=== PATIENT | male | born 1970 | race Caucasian/White ===

== ENCOUNTER 2021-07-12 21:51 | Inpatient (IN) | payer OTHER ==
[~2021-07-12] VITALS: Ht 170.2 cm; Wt 105.9 kg
[2021-07-12 21:56] VITALS: BP 136/107
[2021-07-12 22:17] LABS: BE(vivo) -11.9 mmol/L (-2 to +3); HCO3 13.2 mmol/L (22.0-26.0); PCO2 29.9 mmHg (35.0-45.0); PO2 78.6 mmHg (80.0-100.0); sO2 94.1 % (92.0-98.0)
[2021-07-12 22:18] LABS: pH 7.263 (7.360-7.450)
[2021-07-12 22:24] LABS: URINE BILIRUBIN NEGATIVE (Negative); URINE BLOOD 1+ (Negative); URINE CLARITY CLEAR; URINE COLOR YELLOW; URINE GLUCOSE-RANDOM* 3+ (Negative); URINE KETONES 1+ (Negative); URINE LEUKOCYTES-REFLEX NEGATIVE (Negative); URINE NITRITE-REFLEX NEGATIVE (Negative); URINE PROTEIN (DIPSTICK) NEGATIVE (Negative); URINE UROBILINOGEN 0.2 E.U./dl (0.2-1.0)
[2021-07-12 22:39] LABS: BACTERIA-REFLEX 1-9 Few /HPF (None Seen); CASTS None Seen /LPF (None Seen); CRYSTALS None Seen /LPF (None Seen); MUCUS 0-3 Light strn/LPF (None Seen); SQUAMOUS 0-3 Few /LPF (0-3); URINE RBC 3-10 Few /HPF (NONE SEEN); URINE WBC-REFLEX 0-5 Rare /HPF (0-5)
[2021-07-12 22:43] LABS: AMP/METHAMP POSITIVE (Negative); BARBITURATES Negative (Negative); BENZODIAZEPINES Negative (Negative); COCAINE Negative (Negative); METHADONE Negative (Negative); OPIATES Negative (Negative); PCP Negative (Negative)
[2021-07-13] VITALS (21 sets, daily range): BP systolic 50–170; BP diastolic 30–112
[2021-07-13 00:11] LABS: ABSOLUTE NEUTROPHILS 15.1 thou/uL (1.4-8.2); BASOPHILS 0.3 % (0.0-2.0); HEMOGLOBIN 18.4 gm/dL (14.0-18.0); LYMPHOCYTES 7.3 % (24.0-44.0); MCH 31.2 pg (26.0-34.0); MCHC 30.1 g/dL (28.0-37.0); MCV 103.7 fL (80.0-100.0); MONOCYTES 7.3 % (1.0-8.0); PLATELET COUNT 297 thou/uL (150-400); POLYS 85.1 % (36.0-66.0); RDW 14.5 % (10.5-14.5); WBC 17.7 thou/uL (4.0-11.0)
[2021-07-13 00:16] LABS: HEMATOCRIT 61.2 % (42.0-52.0)
[2021-07-13 00:26] LABS: CALCIUM 10.9 mg/dL (8.5-10.1); CREATININE 3.3 mg/dL (0.7-1.3); POTASSIUM 5.4 mmol/L (3.5-5.1)
[2021-07-13 02:46] LABS: ALBUMIN 3.2 g/dL (3.4-5.0); CALCIUM 10.5 mg/dL (8.5-10.1); CREATININE 2.9 mg/dL (0.7-1.3); PHOSPHORUS 2.9 mg/dL (2.6-4.7)
[2021-07-13 02:59] LABS: POTASSIUM 3.9 mmol/L (3.5-5.1)
[2021-07-13 06:37] LABS: CALCIUM 9.9 mg/dL (8.5-10.1); CREATININE 2.3 mg/dL (0.7-1.3); POTASSIUM 3.4 mmol/L (3.5-5.1)
[2021-07-13 08:46] LABS: CALCIUM 9.9 mg/dL (8.5-10.1); CREATININE 2.3 mg/dL (0.7-1.3); PHOSPHORUS 2.6 mg/dL (2.6-4.7); POTASSIUM 3.6 mmol/L (3.5-5.1)
[2021-07-13 09:40] LABS: HEMATOCRIT 53.1 % (42.0-52.0); HEMOGLOBIN 18.1 gm/dL (14.0-18.0); MCHC 34.1 g/dL (28.0-37.0); MCV 91.1 fL (80.0-100.0); PLATELET COUNT 258 thou/uL (150-400); RBC 5.82 mil/uL (4.50-6.00); RDW 12.9 % (10.5-14.5); WBC 19.6 thou/uL (4.0-11.0)
--- NOTE | 2021-07-13 10:04 | NUR ---
VAT CONSULTED FOR CVAD, TIMEOUT WITH SEYMOUR FISHER. RIJ WAS WIDELY PATENT WITH USG. 6FR 25CM TL JACC INSERTED TO 8CM EXTERNAL WITH BRISK BR. LINE SECURED STAT CXR DONE. PT TOLERATED WELL
--- NOTE | 2021-07-13 10:25 | NUR ---
SPOKE WITH ALEXSANDER, VERBAL ORDER FOR HEAD CT DUE TO STATUS OF PT, AND ABG DUE TO KUSSMAUL BREATHING AND INCREASE RESTLESSNESS, ALEXSANDER WILL COME TO THE ER ROOM 1 TO EVAULATE PT.
[2021-07-13 10:37] LABS: BE(vivo) 1.3 mmol/L (-2 to +3); HCO3 26.3 mmol/L (22.0-26.0); PCO2 42.9 mmHg (35.0-45.0); PO2 65.8 mmHg (80.0-100.0); pH 7.406 (7.360-7.450); sO2 93.1 % (92.0-98.0)
[2021-07-13 11:13] LABS: ABSOLUTE NEUTROPHILS 16.1 thou/uL (1.4-8.2)
--- NOTE | 2021-07-13 11:58 | NUR ---
CXR CONFIRMED CL PLACEMENT, RELEASED FOR IMMEDIATE USE PER PROTOCOL TO SEYMOUR FISHER
[2021-07-13 12:25] LABS: CALCIUM 9.3 mg/dL (8.5-10.1); CREATININE 2.4 mg/dL (0.7-1.3); MAGNESIUM 3.3 mg/dL (1.8-2.4); PHOSPHORUS 3.1 mg/dL (2.5-4.9)
--- NOTE | 2021-07-13 13:25 | NUR ---
LEMUEL NATHAN (MOM) [phone] BRIEN RUVALCABA (GIRLFRIEND) [phone]
[2021-07-13 18:49] LABS: CALCIUM 9.9 mg/dL (8.5-10.1); CREATININE 2.8 mg/dL (0.7-1.3); PHOSPHORUS 3.2 mg/dL (2.6-4.7); POTASSIUM 3.5 mmol/L (3.5-5.1)
[2021-07-13 21:29] LABS: BE(vivo) -0.4 mmol/L (-2 to +3); HCO3 21.1 mmol/L (22.0-26.0); PCO2 28.4 mmHg (35.0-45.0); PO2 104.9 mmHg (80.0-100.0); pH 7.489 (7.360-7.450); sO2 98.2 % (92.0-98.0)
[2021-07-13 23:14] LABS: ALBUMIN 2.5 g/dL (3.4-5.0); CALCIUM 8.2 mg/dL (8.5-10.1); CREATININE 3.6 mg/dL (0.7-1.3); MAGNESIUM 2.5 mg/dL (1.8-2.4); PHOSPHORUS 3.4 mg/dL (2.5-4.9)
[2021-07-14] VITALS (82 sets, daily range): BP systolic 73–178; BP diastolic 27–100
--- NOTE | 2021-07-14 01:29 | NUR ---
I ENTERED PT'S ROOM AT 1930 TO FIND PATIENT IN A CHEYNNE-MORNEO RESPIRATORY PATTERN. PT HAD A LARGE AMOUNT OF ORAL SECRETIONS. uNABLE TO OBTAIN AN ACCURATE PO READING. PT SUCTIONNED ORALLY FOR A MADERATE AMOUNT OF THICK WHITE SECRETIONS. COARSE RESPIRATIONS PERSISTED, AUTOMATION QTP TESTER SUCTIONED FOR A COPIOUS AMOUNT OF THICK WHITE/KHAN SECRETIONS. PT'S WORK OF BREATHING CONTINUES TO INCREASE. pLACED ON BIPAP. PT'S B/P 70/30. Dulce HOLMAN AUTOMATION QTP TESTER AT BEDSIDE. IVF ADMINISTERED. PO READING OBTAINED ON EARLOBE-99%. ABG OBTAINED. 1 AMP BICARB ADMINISTERED. LEVOPHED NOT STARTED AT THAT TIME B/P NORMALIZED. DR JON UPDATED ON PT'S CONDITION. RESULTS OF PT'S BMP SHOWING PT'S NA-[address] DIEHL, NO NOTED. MOTHER, LEMUEL, UPDATED ON PT'S DECLINE. PT'S B/P BEGAN TO DROP. LEVOPHED STARTED AT 0.1 MCG/KG 2325, INCREASED TO 0.2 AT 2333. 0.3 AT 2345, 0.4 AT 0000. pT'S B/P IS WNL ON LEVOPHED AT PRESENT. PT'S FSBS HAD DECREASED TO 80, INSULIN GTT STOPPED BUT THEN RETARTED AT 2330 FOR A FSBS- 187. SEE INSULIN INFUSION FLOWSHEET.
--- NOTE | 2021-07-14 06:40 | NUR ---
Dulce HOLMAN AWARE OF THE INSULIN PROTOCOL STATING THAT BECAUSE PT'S FSBS-268 AND HE IS CURRENTLY RUNNING AT 20 ML/HR, THE RATE SHOULD INCREASE BY 50% TO 30 ML/HR. RATE INCREASED AT 0625
[2021-07-14 09:29] LABS: CALCIUM 8.4 mg/dL (8.5-10.1); POTASSIUM 3.4 mmol/L (3.5-5.1)
[2021-07-14 09:33] LABS: ALBUMIN 2.2 g/dL (3.4-5.0); PHOSPHORUS 2.6 mg/dL (2.6-4.7)
[2021-07-14 09:36] LABS: CREATININE 4.9 mg/dL (0.7-1.3)
[2021-07-14 16:40] LABS: CALCIUM 7.9 mg/dL (8.5-10.1); PHOSPHORUS 3.7 mg/dL (2.6-4.7); POTASSIUM 3.9 mmol/L (3.5-5.1)
[2021-07-14 17:43] LABS: ALBUMIN 2.2 g/dL (3.4-5.0); DIRECT BILIRUBIN 0.1 mg/dL (<0.1-0.2); TOTAL BILIRUBIN 0.3 mg/dL (0.2-1.0); TOTAL PROTEIN 4.8 g/dL (6.4-8.2)
--- NOTE | 2021-07-14 20:01 | NUR ---
PT HAS LARGELY REMAINED LETHARGIC THIS SHIFT, ONCE PT WAS ADJUSTED IN BED AND LEGS STRAIGHTENED OUT PT DID NOT MAKE AN EFFORT TO READJUST SELF, PT WAS SEEN WRIGGLING TOES AT THE MOST AND ALSO GRUNTED AND GRIMACED TO STERNAL RUB ONLY. PT'S BLOOD PRESSURE WAS CONCERNING, AT TIMES PT'S BLOOD PRESSURE WOULD SUDDENLY SHOOT UP WHILE BEING ON PRESSOR SUPPORT AND SUDDENLY COME BACK DOWN WITHOUT ANY INTERVENTION, MD NOTIFIED OF FINDINGS. PT'S URINE OUTPUT WAS DISSMAL, NEPHROLOGY AWARE, MAINTENANCE RATE CUT IN HALF. PT'S BIPAP WAS WEANED THROUGHOUT THE SHIFT, FROM 100 TO 70%, PT TOLERATING WELL. ORAL ROUTE OF ADMINISTRATION WAS NOT AVAILABLE FOR THE PT TODAY GIVEN SEVERITY OF LETHARGY AND INABILITY TO FOLLOW COMMANDS, MADE AWARE. CONTINUING TO MONITOR, RN SIGNING OFF
[2021-07-15] VITALS (84 sets, daily range): BP systolic 74–204; BP diastolic 33–115
--- NOTE | 2021-07-15 05:04 | HC ---
[facility] [place] [address] CONSULTATION Name: LOGAN CALABRESE Room #: 242-P ADM IN M.R.#: [id number] Admission: 07/13/21 Attend Phys: Ivana Maza Discharge: Date of : 70 Report #: [id number] THIS REPORT FOR: cc: NO FAMILY PHYSICIAN or PCP NO FAMILY PHYSICIAN or PCP Fredrick Hendricks MD ~ DATE OF SERVICE: 07/14/2021 INFECTIOUS DISEASE CONSULTATION ATTENDING PHYSICIAN: Dr. Maza. REASON FOR EVALUATION: Febrile illness in the setting of DKA and respiratory failure. HISTORY OF PRESENT ILLNESS: Chart reviewed. The patient examined. This is a 51-year-old gentleman with diabetes mellitus, poorly controlled, who presented to the Emergency Room from home with progressive encephalopathy, increased thirst. He was found to have markedly elevated blood sugars. It is notable that he denies any history of diabetes. Initial blood gases showed pH 7.263 on room air. Urinalysis was remarkable for 3+ glucose, protein was negative and microscopic was unrevealing. Coronavirus testing was negative. Drug screen was positive for methamphetamines. Chest x-ray showed no acute process. Lactic acid was elevated at 3.1 with elevated creatinine of 3.3. Initial blood sugar shows sodium 136 with a glucose of 1460. He was initiated on therapy for DKA. He is noted to have fevers most notably earlier this morning at 101.7. He has been somewhat hemodynamically labile as well. He has required low dose pressor support with norepinephrine. Blood cultures have been collected and are sterile thus far. He was empirically started on therapy with cefepime 2 grams IV q. 24. ALLERGIES: LISTED TO PENICILLIN. CURRENT MEDICATIONS: Include thiamine, norepinephrine, famotidine, enoxaparin, flumazenil, cefepime. PAST MEDICAL HISTORY: Apparently has diabetes mellitus, perhaps initial diagnosis. SOCIAL HISTORY: Polysubstance abuse. Smokes cigarettes, utilizes some illicit drugs including marijuana, cocaine and methamphetamine. Occasional ethanol. FAMILY HISTORY: Noncontributory. REVIEW OF SYSTEMS: Unobtainable. PHYSICAL EXAMINATION: [facility] [address] [place] [address] CONSULTATION Name: BHARATILOGAN Room #: 242-[facility] IN M.R.#: [id number] Admission: 07/13/21 Attend Phys: Ivana Maza Discharge: Date of : 70 Report #: [id number] GENERAL: He is chronically ill appearing. He is minimally responsive at this point. VITAL SIGNS: Temperature 99.7, earlier today 101.7, pulse 98, respirations 31, blood pressure 113/68. SKIN: Warm, dry, no rashes. HEENT: Has a BiPAP in place. NECK: Appears to be supple. LUNGS: Bilateral few scattered coarse breath sounds. HEART: Borderline tachycardic, regular. I do not appreciate a murmur. ABDOMEN: Mildly distended, somewhat firm. There is no overt peritoneal signs. Perhaps some grimacing. GENITOURINARY AND RECTAL: Deferred. LABORATORY DATA: CPK total of 4657. Most recent electrolytes, sodium 163, potassium 4.0, chloride 123, bicarbonate is 28, anion gap of 12, BUN and creatinine 66 and 2.4, glucose was 582, albumin 30. CBC: White count 19.6, H and H 18.1 and 53.1, MCV of 103.7, platelet count of 258. Did have 5% bands. ABGs: pH 7.406, pCO2 of 42.9, pO2 of 65.8 on 3 liters. Followup chest x-ray development of mild right basilar atelectasis or infiltrates, otherwise clear. Lactic acid initially elevated at 3.1, repeat was 1.4, albumin of 2.2. ASSESSMENT AND PLAN: Febrile illness in a setting of what appears to be diabetic ketoacidosis complicated by renal failure, likely component of rhabdomyolysis as well, not entirely clear as to the etiology. Certainly infection would be a likely concern. We will do additional diagnostic testing. I think it is reasonable to continue empiric gram-negative coverage. We will add a dose of vancomycin as well pending the results of the culture. He will need continued fluid resuscitation, ongoing efforts to treat the diabetic ketoacidosis, but is quite critically ill at this point. Continue to monitor expectantly. <ELECTRONICALLY SIGNED> By: Fredrick Hendricks MD 07/15/21 0504 [id number] [id number] Fredrick Hendricks MD /nt
[2021-07-15 05:29] LABS: HEMATOCRIT 45.7 % (42.0-52.0); MCH 31.1 pg (26.0-34.0); MCHC 33.5 g/dL (28.0-37.0); MCV 92.8 fL (80.0-100.0); RBC 4.93 mil/uL (4.50-6.00); RDW 13.3 % (10.5-14.5); WBC 15.8 thou/uL (4.0-11.0)
[2021-07-15 05:44] LABS: HEMOGLOBIN 15.3 gm/dL (14.0-18.0)
--- NOTE | 2021-07-15 05:56 | NUR ---
PT ON INSULIN GTT AND HAD A BLOOD SUGAR OF 55. PROTOCOL FOLLOWED. ORDERS GIVEN BY OIL PLANT OPERATOR. INSULIN GTT RESTARTED. DR GONZALEZ AT BEDSIDE THIS AM. AWARE OF FEVERS OVERNIGHT. WILL CONTINUE POC
--- NOTE | 2021-07-15 08:28 | NUR ---
UNABLE TO GET MORNING TEMP ON THE PT RELATED TO AXILLARY ROUTE NOT AVAILABE; ICE PACKS WERE UNDERNEATH, ORAL ROUTE NOT AVAILABLE; PT IS ON BIPAP
[2021-07-15 08:49] LABS: CALCIUM 7.6 mg/dL (8.5-10.1); CREATININE 4.2 mg/dL (0.7-1.3); POTASSIUM 3.5 mmol/L (3.5-5.1)
[2021-07-15 08:53] LABS: ALBUMIN 1.6 g/dL (3.4-5.0)
[2021-07-15 10:26] LABS: ABSOLUTE NEUTROPHILS 13.1 thou/uL (1.4-8.2); METAMYELOCYTES 2 %
[2021-07-15 10:27] LABS: ANISOCYTOSIS SLIGHT
[2021-07-15 13:14] LABS: LARGE PLATELETS RARE; PLATELET COUNT 70 thou/uL (150-400)
[2021-07-16] VITALS (79 sets, daily range): BP systolic 76–151; BP diastolic 40–100
[2021-07-16 04:35] LABS: HEMATOCRIT 43.8 % (42.0-52.0); HEMOGLOBIN 14.7 gm/dL (14.0-18.0); MCH 31.1 pg (26.0-34.0); MCHC 33.7 g/dL (28.0-37.0); MCV 92.5 fL (80.0-100.0); RBC 4.74 mil/uL (4.50-6.00); RDW 13.4 % (10.5-14.5); WBC 10.5 thou/uL (4.0-11.0)
[2021-07-16 04:43] LABS: ALBUMIN 1.4 g/dL (3.4-5.0); CALCIUM 6.8 mg/dL (8.5-10.1); PHOSPHORUS 4.3 mg/dL (2.5-4.9); POTASSIUM 3.5 mmol/L (3.5-5.1)
[2021-07-16 04:47] LABS: CREATININE 3.1 mg/dL (0.7-1.3)
[2021-07-16 07:06] LABS: HAV IgM AB (ANTI-HAV IgM) Negative (Negative); HEPATITIS B SURFACE AG Negative (Negative); HIV ANTIBODY Non Reactive (Non Reactive)
--- NOTE | 2021-07-16 10:28 | 2DMMODE ---
[facility] [address] [place] [address] 2 D/M-MODE ECHOCARDIOGRAM Name: LOGAN CALABRESE Room #: 242-P ADM IN M.R.#: [id number] Admission: 07/13/21 Attend Phys: Ivana Maza Discharge: Date of : 70 Report #: [id number] THIS REPORT FOR: cc: NO FAMILY PHYSICIAN or PCP NO FAMILY PHYSICIAN or PCP Darshan Leal MD ~ APPROVED REPORT Study performed: 07/16/2021 09:42:40 EXAM: Comprehensive 2D, Doppler, and color-flow Echocardiogram Patient Location: In-Patient Room #: 242 Status: routine BSA: 2.00 HR: 86 bpm BP: 99/66 mmHg Rhythm: NSR Other Information Study Quality: Fair Technically limited study due to body habitus, lung interference. Pt on bipap, RR 32.. Indications N/V Substance abuse 2D Dimensions IVSd: 9.94 (7-11mm) LVOT Diam: 23.84 (18-24mm) LVDd: 45.03 mm PWd: 9.66 (7-11mm) Ascending Ao: 36.66 (22-36mm) LVDs: 31.38 (25-40mm) Left Atrium: 29.46 (27-40mm) Aortic Root: 37.90 mm Volumes Left Atrial Volume (Systole) Single Plane 4CH: 17.69 mL Single Plane 2CH: 26.31 mL Biplane LA Volume: 35.00 mL LA ESV Index: 12.00 mL/m2 Aortic Valve AoV Peak Mandeep.: 0.96 m/s AO Peak Gr.: 3.66 mmHg LVOT Max P.70 mmHg [facility] [address] [place] [address] 2 D/M-MODE ECHOCARDIOGRAM Name: LOGAN CALABRESE Room #: 242-P [facility] IN .R.#: [id number] Admission: 07/13/21 Attend Phys: Ivana Muniz Discharge: Date of : 70 Report #: [id number] LVOT Max V: 0.82 m/s LEENA Vmax: 3.84 cm2 Mitral Valve E/A Ratio: 0.7 MV Decel. Time: 280.77 ms MV E Max Mandeep.: 0.19 m/s MV A Mandeep.: 0.26 m/s MV PHT: 81.42 ms Tricuspid Valve TR Peak Mandeep.: 1.59 m/s RAP Estimate: 7.00 mmHg TR Peak Gr.: 10.17 mmHg RVSP: 17.00 mmHg Left Ventricle The left ventricle is normal size. There is normal LV segmental wall motion. There is normal left ventricular wall thickness. Left ventricular systolic function is mildly decreased. LVEF is 45-50%. Transmitral Doppler flow pattern suggests impaired LV relaxation. Right Ventricle The right ventricle is normal size. The right ventricular systolic function is normal. Atria The left atrium size is normal. The right atrium size is normal. Aortic Valve The aortic valve is not well visualized. No aortic regurgitation is present. There is no aortic valvular stenosis. Mitral Valve The mitral valve is normal in structure. There is no mitral valve regurgitation noted. No evidence of mitral valve stenosis. Tricuspid Valve The tricuspid valve is normal in structure. Trace tricuspid regurgitation PAP 17 mmHg Pulmonic Valve The pulmonary valve is normal in structure. There is no pulmonic valvular regurgitation. Great Vessels [facility] [address] [place] [address] 2 D/M-MODE ECHOCARDIOGRAM Name: BHARATILOGAN LADAN Room #: 242-P ADM IN M.R.#: [id number] Admission: 07/13/21 Attend Phys: Ivana Muniz Discharge: Date of : 70 Report #: [id number] The aortic root is normal in size. IVC is normal in size and collapses >50% with inspiration. Pericardium There is no pericardial effusion. There is no pleural effusion. <Conclusion> The left ventricle is normal size. There is normal left ventricular wall thickness. There is normal left ventricular wall thickness. LVEF is 45-50%. The right ventricle is normal size. The left atrium size is normal. The aortic valve is not well visualized. The mitral valve is normal in structure. The tricuspid valve is normal in structure. Trace tricuspid regurgitation PAP 17 mmHg The pulmonary valve is normal in structure. The aortic root is normal in size. There is no pericardial effusion. <ELECTRONICALLY SIGNED> By: Darshan Leal MD 07/16/21 1028 1028 1028 Darshan Leal MD /INF
[2021-07-16 10:29] LABS: HEPATITIS C VIRUS AB <0.1
--- NOTE | 2021-07-16 11:45 | NUR ---
PT AOX2-3, PT ABLE TO FOLLOW COMMANDS, MOUTH CARE DONE. PT OFF BIPAP AND PLACE ON 8LNC AND TOLERATING IT WELL. NOTED MODELING ON NOSE, B/L KNEES, AND LOWER EXTREMIIIES. LOWER EXTREMITIES COOL TO TOUCH AND PULSE BY DOPPLER. PLAN IS TO STOP LEVO AND TRY NEOSYNPHRINE.
--- NOTE | 2021-07-16 12:02 | NUR ---
WOUND CONSULT: THE RN TODAY ASSKED ME TO SEE THIS PATIENT WHOM IS CURRENTLY ON PRESSORS. HIS TOES/FINGERS AND NOSE HAS MOTTLING AND DUSKY FINGERS AND TOES WELL THE PTIENTS NOSE. THE NOSE IS THE WORSE ARE AT THIS TIME. RECOMMENDATIONS: -PAINT WITH BETADINE DAILY.
--- NOTE | 2021-07-16 16:23 | NUR ---
Discussed during los with the attending physician and during unit rounds. Patient was on bipap 30% FIO2, and currently on nasal cannula oxygen. Speech eval for diet. Patient, 51-year-old male came to the ED from home. Complaints of mental status changes and increased thirst for a few days. Patient blood sugar was noted to be 600 in the field. Patient lives with his mom and significant other. Denies history of DM. he smokes 1 pack/day of cigarette and drinks occasionally. Also reports use of methamphetamine yesterday. Denies IV drug use. Per ED RN, the family reports the patient also uses cocaine and marijuana. positive for methamphetamine per ED notes. Cm spoke with his mom Valerie [phone] and sig anya Santos via phone call, they confirmed that he was independent, never been to the doctor before. not had his covid vaccine and not ever had a flu vaccine before. He was working for a [employer] that just went under. No insurance. Not on any prescription medication, no rehab of any sort in the past. uses drugs and drink occasionally. We would like to know what and were the blood was coming from in his under [place] per mom Avani and sig anya Santos. Will cont. following as needed. Passed on information to the bedside nurse and the attending physician to address with patient and his mom.
[2021-07-17] VITALS (125 sets, daily range): BP systolic 84–137; BP diastolic 43–88
[2021-07-17 04:56] LABS: HEMATOCRIT 39.4 % (42.0-52.0); HEMOGLOBIN 13.1 gm/dL (14.0-18.0); MCH 30.8 pg (26.0-34.0); MCHC 33.4 g/dL (28.0-37.0); MCV 92.4 fL (80.0-100.0); RBC 4.26 mil/uL (4.50-6.00); RDW 13.7 % (10.5-14.5); WBC 7.6 thou/uL (4.0-11.0)
[2021-07-17 05:04] LABS: ALBUMIN 1.2 g/dL (3.4-5.0); CALCIUM 7.1 mg/dL (8.5-10.1); CREATININE 2.4 mg/dL (0.7-1.3); PHOSPHORUS 3.6 mg/dL (2.5-4.9); POTASSIUM 3.5 mmol/L (3.5-5.1)
--- NOTE | 2021-07-17 07:31 | NUR ---
Spoke with pts mom Avani and she stated it was okay for Manuel Joseph (pt's friend) to recieve information on pts condition.
[2021-07-18] VITALS (107 sets, daily range): BP systolic 78–127; BP diastolic 27–88
[2021-07-18 06:40] LABS: ALBUMIN 1.2 g/dL (3.4-5.0); CALCIUM 7.3 mg/dL (8.5-10.1); CREATININE 1.9 mg/dL (0.7-1.3); MAGNESIUM 2.3 mg/dL (1.8-2.4); PHOSPHORUS 2.8 mg/dL (2.5-4.9)
[2021-07-18 06:44] LABS: POTASSIUM 2.7 mmol/L (3.5-5.1)
--- NOTE | 2021-07-18 10:05 | NUR ---
ASSUMED CARE OF PT AT 0700. PT ALERT AND ORIENTED TIMES THREE WITH PERIODS OF CONFUSION. VSS, LOPEZ TO DD. PRECEDEX AND IVF INFUSING PER ORDER. PT TOLERATES MEDS. PT PASSED SWALLOW STUDY THIS MORNING, BUT ONLY EAT A VERY SMALL PORTION OF BREAKFAST. PT DENIES PAIN AT THIS TIME. WILL CONTINUE TO MONITOR.
--- NOTE | 2021-07-18 16:48 | NUR ---
Pt's mother called today requesting assistance with helping pt apply for [place] medicaid. Gilberto Cardona liason is working on that and will call her. Pt still not able to discuss application or sign today.
[2021-07-18 21:17] LABS: CREATININE 1.6 mg/dL (0.7-1.3); MAGNESIUM 2.2 mg/dL (1.8-2.4); POTASSIUM 3.3 mmol/L (3.5-5.1)
[2021-07-19] VITALS (61 sets, daily range): BP systolic 74–129; BP diastolic 43–87
[2021-07-19 05:25] LABS: HEMATOCRIT 37.8 % (42.0-52.0); HEMOGLOBIN 12.3 gm/dL (14.0-18.0); MCH 30.5 pg (26.0-34.0); MCHC 32.6 g/dL (28.0-37.0); MCV 93.7 fL (80.0-100.0); RBC 4.03 mil/uL (4.50-6.00); RDW 13.7 % (10.5-14.5); WBC 16.7 thou/uL (4.0-11.0)
[2021-07-19 05:44] LABS: ALBUMIN 1.1 g/dL (3.4-5.0); CALCIUM 7.2 mg/dL (8.5-10.1); CREATININE 1.6 mg/dL (0.7-1.3); POTASSIUM 3.2 mmol/L (3.5-5.1)
--- NOTE | 2021-07-19 07:52 | NUR ---
ASSUME CARE 1900. PTVITALS STABLE. A/O TO PERSON AND PLACE. EPISODES OF CONFUSION NOTED WITH EASY REDIRECTION. MOVES ALL EXTREMITIES BUT WEAK/COULD BENEFIT FROM PT/OT ONCE STABLE. DENIES ANY PAIN. POOR TOLERANCE TO ACTIVITY. ASSESSMENT CHARTED. PROGRESSING MODERATLY TOWARDS POC. SR ON MONITOR. PT ON PRECEDEX TO HELP WITH AGITATION. ALSO ON NEOSYN FOR BP AND INSULIN DRIP. PLAN IS TO CONTINUE TO MONITOR AND MANAGE LOC/ELECTROYTES/BG. WILL CONTINUE TO MONITOR AND FOLLOW WITH POC
[2021-07-19 22:56] LABS: MAGNESIUM 1.8 mg/dL (1.8-2.4); POTASSIUM 3.1 mmol/L (3.5-5.1)
[2021-07-20] VITALS (70 sets, daily range): BP systolic 70–124; BP diastolic 45–89
[2021-07-20 05:24] LABS: HEMATOCRIT 36.2 % (42.0-52.0); MCH 31.1 pg (26.0-34.0); MCHC 33.1 g/dL (28.0-37.0); MCV 93.8 fL (80.0-100.0); RBC 3.86 mil/uL (4.50-6.00); RDW 13.9 % (10.5-14.5); WBC 18.6 thou/uL (4.0-11.0)
[2021-07-20 06:01] LABS: CALCIUM 7.3 mg/dL (8.5-10.1); CREATININE 1.8 mg/dL (0.7-1.3); POTASSIUM 3.4 mmol/L (3.5-5.1)
--- NOTE | 2021-07-20 07:33 | EKG ---
[address] [place] [address] ELECTROCARDIOGRAM REPORT Name: ROBE CALABRESECHARAN PICKERING Room #: 242-P ADM IN M.R.#: [id number] Admission: 07/13/21 Attend Phys: Ivana Maza Discharge: Date of : 70 Report #: [id number] [facility] Test Date: 2021-07-19 Test Time: 19:29:46 Pat Name: LOGAN CALABRESE Department: Room: 242 P Gender: M Purchasing Assistant: RUEL : 1970 Requested By: Db Rod Order Number: [id number] MD: Adolfo Mckeon Measurements Intervals [place] Rate: 126 P: 38 DE: 146 QRS: 30 QRSD: 83 T: QT: 288 QTc: 417 Interpretive Statements Sinus tachycardia Multiple ventricular premature complexes Probable left atrial enlargement Low voltage, extremity leads No previous ECG available for comparison Electronically Signed On 07-20-2021 7:33:42 DIRECTOR MONEY by Adolfo Mckeon [email or web address] <ELECTRONICALLY SIGNED> By: Adolfo Mckeon MD, [facility] 07/20/21 0733 1929 28 Adolfo Mckeon MD, FACC /EPI
--- NOTE | 2021-07-20 15:41 | NUR ---
Pt remains in ICU on multiple gtts. Confused and now with SBO. NG inplace. DC time frame and needs are uncertain. [employer] involved for medicaid application once pt is able to review and sign paperwork.
[2021-07-20 16:46] LABS: ALBUMIN 1.1 g/dL (3.4-5.0); DIRECT BILIRUBIN 0.1 mg/dL (<0.1-0.2); TOTAL BILIRUBIN 0.3 mg/dL (0.2-1.0); TOTAL PROTEIN 5.6 g/dL (6.4-8.2)
[2021-07-21] VITALS (25 sets, daily range): BP systolic 89–105; BP diastolic 52–70
[2021-07-21 05:40] LABS: CALCIUM 7.7 mg/dL (8.5-10.1); CREATININE 1.5 mg/dL (0.7-1.3); POTASSIUM 3.2 mmol/L (3.5-5.1)
[2021-07-21 05:44] LABS: HEMATOCRIT 35.7 % (42.0-52.0); HEMOGLOBIN 11.8 gm/dL (14.0-18.0); MCH 30.8 pg (26.0-34.0); MCV 93.4 fL (80.0-100.0); RBC 3.82 mil/uL (4.50-6.00); RDW 14.5 % (10.5-14.5)
--- NOTE | 2021-07-21 12:09 | NUR ---
ASSUMED CARE OF PT AT 0700 PT IS SLEEPING BUT WAKES UP WITH CARES AND YELLS CURSE WORDS DR. ANDERSON AT BEDSIDE AT 1000, NO NEW ORDERS GIVEN DR. JAMES AT BEDSIDE AT 1115, ORDER FOR K+ AND NEW FLUIDS ORDERED
[2021-07-22] VITALS (74 sets, daily range): BP systolic 76–127; BP diastolic 47–79
[2021-07-22 05:27] LABS: HEMOGLOBIN 11.7 gm/dL (14.0-18.0); MCH 30.8 pg (26.0-34.0); MCHC 32.5 g/dL (28.0-37.0); MCV 94.6 fL (80.0-100.0); RBC 3.81 mil/uL (4.50-6.00); RDW 14.4 % (10.5-14.5); WBC 19.5 thou/uL (4.0-11.0)
[2021-07-22 05:28] LABS: CALCIUM 7.3 mg/dL (8.5-10.1); CREATININE 1.4 mg/dL (0.7-1.3); POTASSIUM 3.5 mmol/L (3.5-5.1)
[2021-07-23] VITALS (82 sets, daily range): BP systolic 72–157; BP diastolic 40–93
[2021-07-23 10:42] LABS: HEMOGLOBIN 10.9 gm/dL (14.0-18.0); MCHC 31.2 g/dL (28.0-37.0); MCV 95.9 fL (80.0-100.0); PLATELET COUNT 309 thou/uL (150-400); RBC 3.65 mil/uL (4.50-6.00); RDW 15.4 % (10.5-14.5); WBC 19.7 thou/uL (4.0-11.0)
[2021-07-23 10:51] LABS: ALBUMIN 0.9 g/dL (3.4-5.0); CALCIUM 7.7 mg/dL (8.5-10.1); CREATININE 1.4 mg/dL (0.7-1.3); POTASSIUM 3.3 mmol/L (3.5-5.1); TOTAL BILIRUBIN 0.3 mg/dL (0.2-1.0); TOTAL PROTEIN 5.5 g/dL (6.4-8.2)
--- NOTE | 2021-07-23 14:13 | NUR ---
Discussed during unit rounds with Pulmonary MD and during los with the attending physician. Fran having s/s of confusion and agitation and prn precedex started. Had BM today. Currently on room air. Will continue following as needed. Avani- patients mom had no concerns or needs voiced during phone call. Will cont following as needed.
[2021-07-24] VITALS (76 sets, daily range): BP systolic 73–125; BP diastolic 42–82
[2021-07-24 04:32] LABS: HEMATOCRIT 30.9 % (42.0-52.0); HEMOGLOBIN 10.1 gm/dL (14.0-18.0); MCH 30.3 pg (26.0-34.0); MCHC 32.8 g/dL (28.0-37.0); MCV 92.5 fL (80.0-100.0); RBC 3.34 mil/uL (4.50-6.00); RDW 14.4 % (10.5-14.5); WBC 15.4 thou/uL (4.0-11.0)
[2021-07-24 04:41] LABS: ALBUMIN 0.9 g/dL (3.4-5.0); CALCIUM 7.4 mg/dL (8.5-10.1); CREATININE 1.4 mg/dL (0.7-1.3); MAGNESIUM 1.9 mg/dL (1.8-2.4); PHOSPHORUS 3.1 mg/dL (2.6-4.7); TOTAL BILIRUBIN 0.3 mg/dL (0.2-1.0); TOTAL PROTEIN 5.3 g/dL (6.4-8.2)
[2021-07-24 04:42] LABS: POTASSIUM 2.9 mmol/L (3.5-5.1)
[2021-07-24 11:45] LABS: APTT 27.6 Seconds (24.5-32.8); INR 1.3
--- NOTE | 2021-07-24 12:50 | NUR ---
CM returned message to patient mom Avani, she had question about his Medicaid and disability application, were completed and if approved yet. CM education that [employer] was able to file bob for Medicaid and pending at this time. Cm provided office number to [employer]. Patient going to have test/procedure today. Patient is still confused with some forgetfulness and agitation. Unable to clearly make his needs know. Will cont. following as needed. Therapy , when he is stable to work with therapist.
[2021-07-24 16:30] LABS: CSF GLUCOSE 91 mg/dL (40-70); CSF PROTEIN 68 mg/dL (15-45)
[2021-07-24 19:04] LABS: CSF WBC 10 /mm3 (0-10)
[2021-07-24 19:05] LABS: CSF CLARITY SLIGHTLY CLOUDY; CSF COLOR PINKISH; CSF RBC 2320 /mm3; VOLUME 11.5 ml
--- NOTE | 2021-07-24 19:22 | NUR ---
pt potassium 2.9 at 0400 am. pt was given 20meq KCL by night shift supervisor. Dr. Marshall was called and informed about the critical potassium. 60meq more KCL was given and recheck now was 3.7 Pt sedated with precedex.This RN tried to titrate the precedex with haldol prn. Pt still drowsy and lethargic. Head CT was done and pt was taken down for lumbar puncture/spinal tap. NG tube of 14 Malay was placed at right nare to start Tube feed. Coagulation Operator was called to get recommendation. glucerna at 20 ml/hr starting and goal 50ml/hr. Pt started to pull his NG so restraints orders were received from Dr. Rod. Family or Patient significant other Danielle was updated on patient condition at bedside. Pt urine output was adequate. pt still on precedex and vasopressor gtt. Pt not progressing towards goals.
[2021-07-25] VITALS (84 sets, daily range): BP systolic 78–141; BP diastolic 47–92
[2021-07-25 04:59] LABS: HEMATOCRIT 31.8 % (42.0-52.0); HEMOGLOBIN 10.7 gm/dL (14.0-18.0); MCH 31.2 pg (26.0-34.0); MCHC 33.7 g/dL (28.0-37.0); MCV 92.7 fL (80.0-100.0); RBC 3.43 mil/uL (4.50-6.00); RDW 14.3 % (10.5-14.5); WBC 17.9 thou/uL (4.0-11.0)
[2021-07-25 05:28] LABS: CALCIUM 7.3 mg/dL (8.5-10.1); CREATININE 1.3 mg/dL (0.7-1.3); PHOSPHORUS 3.6 mg/dL (2.6-4.7); TOTAL BILIRUBIN 0.3 mg/dL (0.2-1.0); TOTAL PROTEIN 5.8 g/dL (6.4-8.2)
[2021-07-25 05:32] LABS: POTASSIUM 2.9 mmol/L (3.5-5.1)
--- NOTE | 2021-07-25 14:46 | NUR ---
PT IS NOT PROGRESSING TOWARD THE POC EVIDENCED BY PERSISTENT ENCEPHALOPATHY. HE IS SEDATED WITH PRECEDEX TO CONTROL TACHYPNEA/TACHYCARDIA. ALSO, WHEN THIS RN TITRATES THE PRECEDEX FROM 0.8 MCG/KG/H TO 0.6 MCG/KG/H THE PT BECOMES DIAPHORETIC NOTING ABNORMAL BREATHING PATTERNS WITH TACHYPNEA/TACHYCARDIA (130). THE LP/SPINAL TAP AND CT OF THE HEAD RESULTS ARE NEGATIVE. NEUROLOGY IS CONSULTING PER DR. RODRIGUEZ TO ADDRESS HIS PERSISTENT ENCEPHALOPATHY. THIS PT IS ON ART-SYNEPHRINE LIKELY RESULTING FROM HAVING A PRECEDEX DRIP. NOTING THAT HE HAS MOTTLING IN THE TOES GOING UP SPORADICALLY TO THE LEFT KNEE. HIS FLUID STATUS IS NEGATIVE FOR THE LAST 24 HOURS THE FUROSEMIDE IS DC'D PER DR DIEHL. DURING ROUNDING DR FRASER DISCUSSED WITH THIS RN TO INCREASE HALDOOL/SEROQUEL/ATIVAN IN ATTEMPT TO DECREASE THE PRECEDEX DRIP. AGAIN, THIS PLAN IS NOT PROGRESSING PER AMS OF THE PT. PT AM POTASSIUM IS 2.9 THIS RN ADMINISTERED [address] DIEHL ORDERS. THIS PT HAS A DILATED ILEUS W/ OBSTRUCTION; HOWEVER, HE DID HAVE A LARGE LIQUID BM TODAY. NEUROLOGICALLY HE IS MOANING, WITHDRAWING TO PAIN, AND JAIME. HE WILL OPEN HIS EYES TO PAIN RAPIDLY THEN CLOSING THEM JUST QUICKLY. THIS RN IS FOLLOWING THE POC.
[2021-07-26] VITALS (27 sets, daily range): BP systolic 81–127; BP diastolic 47–84
[2021-07-26 06:10] LABS: HEMATOCRIT 31.2 % (42.0-52.0); MCH 29.9 pg (26.0-34.0); MCHC 32.1 g/dL (28.0-37.0); RBC 3.35 mil/uL (4.50-6.00); RDW 14.5 % (10.5-14.5); WBC 12.8 thou/uL (4.0-11.0)
[2021-07-26 06:24] LABS: CALCIUM 7.5 mg/dL (8.5-10.1); CREATININE 1.2 mg/dL (0.7-1.3); TOTAL BILIRUBIN 0.2 mg/dL (0.2-1.0); TOTAL PROTEIN 5.7 g/dL (6.4-8.2)
[2021-07-26 06:25] LABS: POTASSIUM 2.9 mmol/L (3.5-5.1)
--- NOTE | 2021-07-26 09:26 | NUR ---
ASSUMED CARE OF PT AT 0700 DR. FRASER AT BEDSIDE, NEW MED ORDERS GIVEN
[2021-07-26 21:06] LABS: SYPHILIS AB Non Reactive (Non Reactive)
[2021-07-27] VITALS (69 sets, daily range): BP systolic 82–171; BP diastolic 48–111
[2021-07-27 06:19] LABS: HEMATOCRIT 29.5 % (42.0-52.0); HEMOGLOBIN 9.8 gm/dL (14.0-18.0); MCH 30.9 pg (26.0-34.0); MCHC 33.3 g/dL (28.0-37.0); MCV 92.7 fL (80.0-100.0); RBC 3.19 mil/uL (4.50-6.00); RDW 14.4 % (10.5-14.5); WBC 9.8 thou/uL (4.0-11.0)
[2021-07-27 06:30] LABS: CALCIUM 7.4 mg/dL (8.5-10.1); CREATININE 1.1 mg/dL (0.7-1.3); MAGNESIUM 1.9 mg/dL (1.8-2.4); POTASSIUM 3.1 mmol/L (3.5-5.1); TOTAL BILIRUBIN 0.2 mg/dL (0.2-1.0); TOTAL PROTEIN 5.8 g/dL (6.4-8.2)
--- NOTE | 2021-07-27 12:08 | NUR ---
Report passed on from the bedside nurse . Note patient to zeynep and groaning per bedside nurse report. Discussed during los with the attending physician. MRI today. Patient confused. Cm spoke with his mom Avani via phone call, no concerns or needs voiced. Thank you for checking and calling us per mom Avani. No anticipated weekend dc. Will cont. following, Medicaid bob was submitted. Patient will mostly require some rehab prior to dc home related weakness and declines.
[2021-07-28] VITALS (29 sets, daily range): BP systolic 93–145; BP diastolic 47–93
[2021-07-28 03:12] LABS: HEMATOCRIT 28.8 % (42.0-52.0); HEMOGLOBIN 9.6 gm/dL (14.0-18.0); MCH 30.6 pg (26.0-34.0); MCHC 33.3 g/dL (28.0-37.0); MCV 91.8 fL (80.0-100.0); RBC 3.13 mil/uL (4.50-6.00); RDW 14.5 % (10.5-14.5); WBC 8.5 thou/uL (4.0-11.0)
[2021-07-28 03:22] LABS: CALCIUM 7.6 mg/dL (8.5-10.1); PHOSPHORUS 2.6 mg/dL (2.6-4.7); POTASSIUM 3.3 mmol/L (3.5-5.1)
--- NOTE | 2021-07-28 04:17 | NUR ---
becomes aggitated easily. he has many episodes of increased heart rate into the low 130's. lorazepam given tonight with some control of his anxiety, tachycardia.blood pressure wnls. maintaining o2 sat greater than 95%.
[2021-07-28 04:43] LABS: BE(vivo) -2.9 mmol/L (-2 to +3); HCO3 18.7 mmol/L (22.0-26.0); PO2 70.9 mmHg (80.0-100.0); pH 7.517 (7.360-7.450)
[2021-07-28 04:44] LABS: PCO2 23.6 mmHg (35.0-45.0)
--- NOTE | 2021-07-28 08:38 | NUR ---
NEURO SAW PT VIA IPAD. NO NEW ORDERS GIVEN. STATED THAT TREATMENT WOULD REMAIN THE SAME FOR NOW AND WILL REEVALUATE POST-ECHO.
--- NOTE | 2021-07-28 10:50 | NUR ---
1045- SPOKE WITH PT'S MOTHER, CAREN, AND UPDATED HER REGARDING PT'S STATUS AND POC.
--- NOTE | 2021-07-28 22:35 | NUR ---
SPOKE WITH No HOLMAN [facility] D/T PATIENT ELEVATED HR (140-160s). PREV GIVEN IVP ATIVAN AND HALDOL AND NO CHANGE NOTED. ORDERS RECEVIED FOR ONETIME 5MG IVP LOPRESSOR WITHOUT SOME SUCCESS.
--- NOTE | 2021-07-28 23:36 | NUR ---
LEFT MESSAGE WITH No HOLMAN NP D/T PT APPEARING/SOUNDING CONGESTED. REQUESTED AN ORDER FOR NT SUCTION.
--- NOTE | 2021-07-28 23:45 | NUR ---
AT 2243 SENT TEXT MESSAGE STATING PATIENT ORALLY VERY DRY, SOUNDS CONGESTED AND OPEN-MOUTH BREATHING WITH 02 SATS DECREASING ONLY VERY MINIMALLY FROM 97-98 TO 94%. ORAL CARE DONE WITH NEW ORAL KIT. PT BITES YAUNKER AND SWABS AND MOVES AHEAD TO AVOID ORAL CARE.
--- NOTE | 2021-07-28 23:45 | NUR ---
RT DID ONE PASS NT SUCTION IN EACH NARE. OUTPUT BLOODY. PT BEGAN COUGHING AND SUCTIONED ORALLY, REMOVING LARGE CHUNKS OF SKIN AND OTHER MATERIAL FROM MOUTH/ THROAT. REPEATED ORAL CARE TO CONTINUE, REMOVING SKIN AND BLOODY SECRETIONS. PATIENT CONTINUES TO BE RESISTANT TO ORAL CARE.
[2021-07-29] VITALS (139 sets, daily range): BP systolic 56–178; BP diastolic 11–112
--- NOTE | 2021-07-29 03:55 | NUR ---
DURING LABS, GTTS STOPPED. PATIENT WENT FROM VERY TACHY TO VLADIMIR AND SATS DROPPED BUT WITH POOR WAVEFORM AND THEN WITHIN SECONDS HR TACHY AGAIN. PATIENT BECAME VERY VLADIMIR (40-50S) FOR SECOND TIME AND BECAME VERY DUSKY/PALE, FELT FOR RADIAL AND CAROTID PULSES AND BOTH ABSENT, TUBE FEED STOPPED, AND CODE BLUE CALLED. COMPRESSIONS STARTED. RT IN SAME POD AND BEGAN BAGGING PATIENT.
[2021-07-29 04:32] LABS: ALBUMIN 1.1 g/dL (3.4-5.0); CALCIUM 7.5 mg/dL (8.5-10.1); CREATININE 1.2 mg/dL (0.7-1.3); POTASSIUM 4.2 mmol/L (3.5-5.1); TOTAL BILIRUBIN 0.3 mg/dL (0.2-1.0); TOTAL PROTEIN 6.4 g/dL (6.4-8.2)
--- NOTE | 2021-07-29 04:37 | NUR ---
Notified Dr. Bedoya of pt coding and being intubated. Attempted to reach pt's mother and girlfriend but no answer on either line. Mother's phone goes to busy signal; left message on girlfriend, Danielle's, voice mail to call ICU.
[2021-07-29 04:44] LABS: ABSOLUTE NEUTROPHILS 5.3 thou/uL (1.4-8.2); BASOPHILS 0.3 % (0.0-2.0); EOSINOPHILS 0.6 % (0.0-3.0); HEMATOCRIT 31.1 % (42.0-52.0); LYMPHOCYTES 41.1 % (24.0-44.0); MCH 30.1 pg (26.0-34.0); MCHC 32.2 g/dL (28.0-37.0); MCV 93.6 fL (80.0-100.0); MONOCYTES 13.4 % (1.0-8.0); PLATELET COUNT 281 thou/uL (150-400); POLYS 44.6 % (36.0-66.0); RBC 3.32 mil/uL (4.50-6.00); RDW 14.1 % (10.5-14.5); WBC 11.9 thou/uL (4.0-11.0)
[2021-07-29 05:26] LABS: BE(vivo) -4.1 mmol/L (-2 to +3); HCO3 20.5 mmol/L (22.0-26.0); PCO2 35.4 mmHg (35.0-45.0); PO2 260.1 mmHg (80.0-100.0); pH 7.381 (7.360-7.450); sO2 99.6 % (92.0-98.0)
--- NOTE | 2021-07-29 17:35 | NUR ---
PT BRONCHED BY DR. JON THIS AM. PT REMAINS SEDATED ON PRECEDEX AND HAS LEVOPHED GTT FOR BP SUPPORT. VENT SETTINGS REMAIN AT 5 OF PEEP AND FIO2 40%. SATS >97%. PT'S GIRLFRIEND, BRIEN, WAS AT BEDSIDE AND WAS UPDATED REGARDING PT'S STATUS. DR. JON TALKED TO BRIEN PRIOR TO BRONCH AND INFORMED HER OF INTUBATION THAT TOOK PLACE LAST NIGHT. THIS RN ALSO INFORMED BRIEN OF PT'S PEA DURING LAST NIGHT'S CODE. HAVE NOT SPOKE TO PT'S MOTHER. RN TO CONTINUE TO MONITOR AND FOLLOW POC.
--- NOTE | 2021-07-29 20:00 | NUR ---
ASSUMED CARE AT CHANGE OF SHIFT. UPON ASSESSMENT, PT EYES OPEN WITH EYES ROLLED TOWARD BACK AND PEERING UPWARD. PUPILS 4/BRISK. +COUGH/GAG/CORNEAL REFLEXES. +BABINSKI SIGN. INTUBATED/SEDATED, DOES NOT FOLLOW ANY COMMANDS OR TRACK WITH EYES. DECERBRATE POSTURING TO PAINFUL STIMULI OBSERVED. SPONTANEOUS WIGGLES/MOVES TOES. FREQUENT YAWNS. BITES DOWN/CHEWS ON TUBE AND DURING ORAL CARE. VSS WITH PRESSORS AND SEDATION. NOTIFIED MEDICAL ASSISTANT CARDIOLOGY ON NOC SHIFT OF FINDINGS. NO NEW ORDERS RECEIVED.
[2021-07-30] VITALS (75 sets, daily range): BP systolic 75–157; BP diastolic 47–89
[2021-07-30 04:57] LABS: ALBUMIN 0.9 g/dL (3.4-5.0); CALCIUM 6.7 mg/dL (8.5-10.1); CREATININE 1.3 mg/dL (0.7-1.3); PHOSPHORUS 3.7 mg/dL (2.5-4.9); POTASSIUM 3.3 mmol/L (3.5-5.1)
--- NOTE | 2021-07-30 05:20 | NUR ---
REFERRAL TO MTN D/T PATIENT GCS </= 5. REFERRAL NO [id number].
--- NOTE | 2021-07-30 05:45 | NUR ---
CALLED NEURO ANSWERING SERVICE D/T NEW CHANGE IN NEURO STATUS. REQUESTED CALL BACK AND PROVIDED PHONE NUMBER TO REACH ME.
--- NOTE | 2021-07-30 06:00 | NUR ---
POTASSIUM LOW. CALLED SCHOOL MANAGER ON DUTY TO REQUEST ONETIME KCL REPLACEMENT. ORDERS RECEIVED.
[2021-07-30 09:28] LABS: HSV PCR SOURCE CSF
[2021-07-30 09:29] LABS: HSV 1 DNA None detected; HSV 2 DNA None detected
--- NOTE | 2021-07-30 11:51 | NUR ---
Recommend resume glucerna 1.2 tube feed and reach goal 55ml/hr. Please clarify with hospitalist if D5 IVF can be discontinued and start water flushes
[2021-07-30 15:49] LABS: CALCIUM 7.5 mg/dL (8.5-10.1); CREATININE 1.3 mg/dL (0.7-1.3); POTASSIUM 3.8 mmol/L (3.5-5.1)
--- NOTE | 2021-07-30 16:10 | NUR ---
MYNOR CHAMBERS FROM LAB CALLED AT 1600 WITH A CRITICAL VANCOMYCIN TROPH OF 31. RN SPOKE TO DR. RODRIGUEZ AT 1605 AND WAS TOLD TO HOLD VANCOMYCIN MEDICATION. RN CHARTED THAT THE VANCOMYCIN MEDICATION WAS NOT GIVEN BECAUSE IT WAS NOT INDICATED.
--- NOTE | 2021-08-07 12:33 | HC ---
[facility] [place] [address] CONSULTATION Name: LOGAN CALABRESE Room #: 242-P [facility] IN M.R.#: [id number] Admission: 07/13/21 Attend Phys: Ivana Maza Discharge: 07/31/21 Date of : 70 Report #: [id number] THIS REPORT FOR: cc: NO FAMILY PHYSICIAN or PCP NO FAMILY PHYSICIAN or PCP Jordon Vanessa MD ~ DATE OF SERVICE: 07/26/2021 HISTORY OF PRESENT ILLNESS: This is a 51-year-old male patient who was not able to provide much history. I talked to Dr. Thompson who is the referring physician and hospitalist. I reviewed the patient's record. The patient was admitted with altered mental status. It looks like he was admitted long time ago on 07/13. His blood sugar was pretty high at that time and he looks like was obtunded when he came in, but he was able to talk. Since then, he has not woken up that much. He has seen multiple consultants and some of those notes were reviewed. At one time, it would appear that he also was febrile and he was seen by ID. He also had renal failure. He is not waking up any as I understand from the record and that is the reason for Neurology consult. He has pretty extensive records in the computer. A 14-point review of system was attempted and this patient had multiple problems. He was admitted with pretty significant diabetes. He had rhabdo as I understand. He has been given thiamine, according to the nurses, on a pretty persistent basis. They are trying to start him on nutrition. Multiple consultants including the Nephrology and ID is following this patient. He cannot tell me whether he had any stroke or seizures in the past. This was all the relevant 14-point review of systems I can get. Apparently, he also had ileus for which he is managed conservatively. PAST MEDICAL HISTORY: Unavailable from him, but apparently he has diabetes. FAMILY HISTORY: Also unavailable. SOCIAL HISTORY: Record indicates he does smoke. PHYSICAL EXAMINATION: Pretty limited. He tried to talk, but he could not come up with any word, but occasionally, he did follow commands, but that was not good enough to do any good neurological examination. The only thing I can tell is that he has no meningeal sign and he appeared to move both sides. He did not cooperate with the sensory examination. His reflexes appeared to be diminished. He does have an NG. LABORATORY DATA: As far as workup is concerned, he had TSH, vitamin B12. At one time, he did have a CT scan of the head, which does not show any acute abnormality. His lab indicate multiple abnormalities including potassium of 2.9. He is getting some sedation like Seroquel. He also got other medicines like Haldol and fentanyl. [facility] [address] [place] [address] CONSULTATION Name: LOGAN CALABRESE Room #: 242-P [facility] IN M.R.#: [id number] Admission: 07/13/21 Attend Phys: Ivana Maza Discharge: 07/31/21 Date of : 70 Report #: [id number] IMPRESSION: 1. Encephalopathy. 2. CVA need to be excluded. RECOMMENDATIONS: 1. I discussed with Dr. Thompson that MRI will be done as stat. He indicated the patient is stable enough to go for MRI. We will see if we can find somebody who can fill up the questionnaire for MRI and he can get an MRI done. 2. He has been on thiamine high dosages for a while. They should consider stopping it until there is a reason to give it because he already has been on it for some time now. 3. Rest of the workup will depend upon what the MRI shows. If MRI does not show any abnormality, then I think the main emphasis should be to see if we can cut back his psychotropic medication and see if he wakes up. He should be clearing of medication relatively faster since his kidney function has improved. Thank you very much for allowing me to share in the management of this patient. Teleneurology will followup this patient with you from tomorrow. <ELECTRONICALLY SIGNED> By: Jordon Vanessa MD 08/07/21 1233 23 38 Jordon Vanessa MD /nt
--- NOTE | 2021-08-07 12:33 | EEG ---
[facility] [address] ELECTROENCEPHALOGRAM Name: LOGAN CALABRESE Room #: 242-P [facility] IN M.R.#: [id number] Admission: 07/13/21 Attend Phys: Ivana Bolton Erlindahola Discharge: 07/31/21 Date of : 70 Report #: [id number] THIS REPORT FOR: //name// DATE OF SERVICE: 07/30/2021 This patient is being evaluated for altered mental status. EEG was done by placing the electrode by standard 10-20 system of electrode placement. Both referential and sequential montages were used for recording. Background activity in this patient's EEG is low voltage and therefore frequency is difficult to tell. It appeared to be about 4 Hz and 10 microvolt. Photic stimulation is unremarkable. Throughout the record, no active epileptiform activity was noticed. IMPRESSION: This is an abnormal EEG because it is disorganized, poorly formed, low-voltage activity. There is a nonspecific finding, which can occur with encephalopathy and effect of psychotropic medication. It will be desirable to repeat the EEG once the patient is off any psychotropic medications. Thank you very much for this referral. <ELECTRONICALLY SIGNED> By: Jordon Vanessa MD 08/07/21 1233 [id number] Jordon Vanessa MD /nt
== END 2021-07-31 | disposition hospice, inpatient (51) | DRG 870 ==
LOC: ER 21:51 → EROBS 07-13 01:41 → ICU 07-13 12:46
PROVIDERS: Emergency Medicine; Hospitalist; Internal Medicine; Internal Medicine Nephrology; Internal Medicine Pulmonary Disease; Nurse Practitioner; Nurse Practitioner Family; Pediatrics; Specialist; ADMIT Hospitalist; ATTEND Hospitalist
PROC: 5A09457 Assistance with Respiratory Ventilation, 24-96 Consecutive Hours, Continuous Positive Airway Pressure (ICD-10-PCS; principal; 2021-07-13)
PROC: B548ZZA Ultrasonography of Superior Vena Cava, Guidance (ICD-10-PCS; principal; 2021-07-13)
PROC: 02HV33Z Insertion of Infusion Device into Superior Vena Cava, Percutaneous Approach (ICD-10-PCS; principal; 2021-07-13)
PROC: 03HY32Z Insertion of Monitoring Device into Upper Artery, Percutaneous Approach (ICD-10-PCS; 2021-07-15)
PROC: 5A09357 Assistance with Respiratory Ventilation, Less than 24 Consecutive Hours, Continuous Positive Airway Pressure (ICD-10-PCS; 2021-07-16)
PROC: 5A0935A Assistance with Respiratory Ventilation, Less than 24 Consecutive Hours, High Flow/Velocity Cannula (ICD-10-PCS; 2021-07-16)
PROC: 5A09357 Assistance with Respiratory Ventilation, Less than 24 Consecutive Hours, Continuous Positive Airway Pressure (ICD-10-PCS; 2021-07-17)
PROC: 0BH17EZ Insertion of Endotracheal Airway into Trachea, Via Natural or Artificial Opening (ICD-10-PCS; 2021-07-29)
PROC: 5A1955Z Respiratory Ventilation, Greater than 96 Consecutive Hours (ICD-10-PCS; 2021-07-29)
PROC: 0B9F8ZX Drainage of Right Lower Lung Lobe, Via Natural or Artificial Opening Endoscopic, Diagnostic (ICD-10-PCS; 2021-07-29)
PROC: 5A12012 Performance of Cardiac Output, Single, Manual (ICD-10-PCS; 2021-07-29)
DX: A41.9 Sepsis, unspecified organism (principal); E11.10 Type 2 diabetes mellitus with ketoacidosis without coma; G92.8 Other toxic encephalopathy; J96.01 Acute respiratory failure with hypoxia; E43 Unspecified severe protein-calorie malnutrition; J69.0 Pneumonitis due to inhalation of food and vomit; R65.21 Severe sepsis with septic shock; E87.4 Mixed disorder of acid-base balance; N17.9 Acute kidney failure, unspecified; E87.0 Hyperosmolality and hypernatremia; M62.82 Rhabdomyolysis; K56.609 Unspecified intestinal obstruction, unspecified as to partial versus complete obstruction; K56.7 Ileus, unspecified; F17.210 Nicotine dependence, cigarettes, uncomplicated; F12.90 Cannabis use, unspecified, uncomplicated; F10.10 Alcohol abuse, uncomplicated; F14.10 Cocaine abuse, uncomplicated; F19.10 Other psychoactive substance abuse, uncomplicated; R23.0 Cyanosis; D69.6 Thrombocytopenia, unspecified; I95.9 Hypotension, unspecified; Z20.822 Contact with and (suspected) exposure to COVID-19; E87.6 Hypokalemia; Z66 Do not resuscitate; Z88.0 Allergy status to penicillin
CPT/HCPCS: 10078